=== PATIENT | male | born 1940 | race Caucasian/White ===

== ENCOUNTER 2017-07-14 20:30 | Outpatient (CLI) | payer MEDICARE, OTHER ==
--- OUTSIDE RECORDS SUMMARY | 2017-07-15 08:58 | XMS | Clinical Summary ---
:1940 Author Organization [facility] Address [address] [place] [address] Phone Care Team Providers Name Role Phone , Primary Care Provider Unavailable Allergies Not on File Current Medications Not on file Active Problems Not on file Social History Tobacco Use Types Packs/Day Years Used Date Never Assessed Sex Assigned at Date Recorded Not on file Last Filed Vital Signs Not on file Plan of Treatment Not on file Results Not on filefrom Last 3 Months
--- OUTSIDE RECORDS SUMMARY | 2017-07-15 08:58 | XMS | Clinical Summary ---
:1940 Author Organization [facility] Address [address] [place] [address] Phone Care Team Providers Name Role Phone , Primary Care Provider Unavailable Allergies No Known Allergies Current Medications Prescription Sig. Disp. Refills Start Date End Date Status multivitamin per Take 1 tablet by mouth Active tabletIndications:Vit daily. snider Deficiency omega-3 fatty Take 2 g by mouth Active acids-fish oil daily. 340-1,000 mg Cap per capsule omeprazole (PRILOSEC) Take 40 mg by mouth Active 40 MG daily. capsuleIndications:ga stroesophageal reflux disease escitalopram Take 10 mg by mouth Active (LEXAPRO) 10 MG daily. tabletIndications:Gen eralized Anxiety Disorder levothyroxine Take 50 mcg by mouth Active (SYNTHROID, daily. LEVOTHROID) 50 MCG tabletIndications:hyp othyroidism testosterone Inject intramuscularly Active enanthate every 30 (thirty) days. (DELATESTRYL) 200 mg/mL injectionIndications: Androgen Deficiency naproxen Take 220 mg by mouth Active (ALEVE,ANAPROX,MIDOL) daily. 220 MG tabletIndications:Viviane n Active Problems Not on file Family History Medical History Relation Name Comments Unremarkable Father Unremarkable Mother Relation Name Status Comments Father Mother Social History Tobacco Use Types Packs/Day Years Used Date Former Smoker Quit: 1968 Alcohol Use Drinks/Week oz/Week Comments Yes 1 Glasses of wine 1.2 OCC 1 Cans of beer Sex Assigned at Date Recorded Not on file Last Filed Vital Signs Vital Sign Reading Time Taken Blood Pressure 136/81 09/29/2014 2:40 PM PERFORMANCE IMPROVEMENT ANALYST Pulse 64 09/29/2014 2:40 PM PERFORMANCE IMPROVEMENT ANALYST Temperature 36.6 C (97.9 F) 09/29/2014 2:40 PM PERFORMANCE IMPROVEMENT ANALYST Respiratory Rate 16 09/29/2014 2:40 PM PERFORMANCE IMPROVEMENT ANALYST Oxygen Saturation 97% 09/29/2014 2:40 PM PERFORMANCE IMPROVEMENT ANALYST Inhaled Oxygen Concentration - - Weight 105.9 kg (233 lb 7.5 oz) 09/29/2014 11:22 AM PERFORMANCE IMPROVEMENT ANALYST Height 188 cm (6' 2") 09/29/2014 11:22 AM PERFORMANCE IMPROVEMENT ANALYST Body Mass Index 29.98 09/29/2014 11:22 AM PERFORMANCE IMPROVEMENT ANALYST Plan of Treatment Not on file Results Not on filefrom Last 3 Months Advance Directives Patient has advance directives. For more information, please contact:[address] [phone]
== END 2017-07-14 20:31 | disposition home or self-care (01) ==
LOC: SLEEPLAB 20:30
PROVIDERS: ATTEND Internal Medicine
DX: G47.33 Obstructive sleep apnea (adult) (pediatric) (principal); R06.83 Snoring; G47.10 Hypersomnia, unspecified; E66.9 Obesity, unspecified
CPT/HCPCS: 95811

== ENCOUNTER 2017-10-13 09:38 | Emergency (ER) | payer MEDICARE, OTHER ==
[2017-10-13 10:55] LABS: Bilirubin Negative (Negative); Blood, Urine Large (Negative); Glucose, Urine (Dipstick) Negative (Negative); Ketone, Urine Trace mg/dL (Negative); Nitrite Positive (Negative); Protein, Urine (Dipstick) 300 mg/dL (Neg-Trace)
[2017-10-13 10:58] LABS: Bacteria/HPF None Seen HPF (None Seen); Hyaline Casts/LPF 7-10 HYALINE CAST LPF (0-3 Hyaline); RBC/HPF GREATER THAN 50-TNTC HPF (0-3); Squamous Epithelial 0-3 HPF (0-3)
[2017-10-13 12:20] LABS: #Basophils 0.1 thou/uL (0.0-0.2); #Eosinphils 0.2 thou/uL (0.0-0.7); #Lymphocytes 1.6 thou/uL (1.20-3.40); #Monocytes 0.8 thou/uL (0.11-0.59); #Neutrophils 8.4 thou/uL (1.40-6.50); %Basophils 0.5 % (0.0-1.0); %Eosinophils 1.6 % (0.0-10.0); %Lymphocytes 14.5 % (21.0-51.0); Hematocrit 50.9 % (42.0-52.0); Red Blood Cell (RBC) Count 5.16 mill/uL (4.70-6.10); White Blood Cell (WBC) Count 10.9 thou/uL (4.8-10.8)
[2017-10-13] MEDS ORDERED: cefTRIAXone\\ROCEPHIN 2 GM in Sodium Chloride 0.9% 100 ML IVPB SCH (12:45)
[2017-10-13 12:50] LABS: ALT (SGPT) 18 U/L (8-55); AST (SGOT) 17 U/L (5-34); Alkaline Phosphatase 68 U/L (40-150); Anion Gap 12 mmol/L (10-20); BUN (Urea Nitrogen) 14 mg/dL (8.4-25.7); Bilirubin, Total 0.6 mg/dL (0.2-1.2); Calc. Creatinine Clearance 0 mL/min (70-130); Calcium 10.5 mg/dL (7.8-10.44); Carbon Dioxide 29 mmol/L (23-31); Chloride 103 mmol/L (98-107); Estimated GFR-MDRD 68; Globulin 2.1 g/dL (2.4-3.5); Protein, Total 6.4 g/dL (5.8-8.1)
--- NOTE | 2017-10-13 13:11 | CON ---
DATE OF CONSULTATION: 10/13/2017 REASON FOR CONSULT: ER consult for hematuria. HISTORY OF PRESENT ILLNESS: Mr. Tran is a 77-year-old male followed by Dr. Adam Jeffers for symptoms of BPH, overactive bladder. The patient currently undergoing workup for transurethral resection of prostate due to urgency, irritative/obstructive voiding symptoms, BPH. He recently underwent urodynamics demonstrating obstructive pattern with mild incomplete void. The patient unable to tolerate BPH medication as well as overactive bladder medication due to side effect profile. Unfortunately, as the patient is dealing with Alzheimer's, early memory loss, he is unable to tell me details of his reaction to urologic medications. Nevertheless , his Alfuzosin and Trospium have been discontinued. He has previously been on Myrbetriq with no significant improvement of frequency, nocturia. He is scheduled for elective cystoscopy in the next few weeks. He called the service due to gross hematuria. The contacted the service regarding passage of small clots and frequency, urgency. He did present for emergency room assessment, labs obtained demonstrating regino urine. He denies history of fever, abdominal discomfort. He has history of chronic constipation, had small bowel movement today. PAST MEDICAL HISTORY: Type 2 diabetes, Alzheimer's. PAST SURGICAL HISTORY: Include recent urodynamics, bilateral inguinal hernia repair, stomach repair 10/2012, hernia repair in 1998. PSYCHIATRIC: None. SOCIAL HISTORY: Social drinker, previous tobacco abuse. Lives with his who is present. PHYSICAL EXAMINATION: VITAL SIGNS: Blood pressure 139/78, 83 19, 99.5. GENERAL: The patient is an alert, cooperative to physical exam. at bedside. HEENT: Unremarkable. HEART: Regular rate. LUNGS: Clear. ABDOMEN: Soft, protuberant, obese. No rigidity, no rebound, and no suprapubic tenderness. GENITOURINARY: Circumcised phallus. Meatus is unremarkable. Testes descended with no evidence of intratesticular mass. RECTAL: Digital rectal exam with prostate approximately 40 grams with no discrete nodularity or induration or fluctuance appreciated., Moderate amount of hard stool in the rectal vault. EXTREMITIES: No cyanosis, clubbing or edema. BEDSIDE PROCEDURE: The patient's genital area was formally prepped, a 16 Slovak catheter was able to be passed without difficulty with no significant postvoid residual concern, approximately 80 mL. Concentrated yellow urine with some sedimentous debris. I flushed the catheter gently with no subsequent clots. Of note, relates a pea-sized clot passage this morning. PERTINENT LABS: Urinalysis; regino, large leukocytes, positive nitrites, 300 protein, greater than 50 WBCs, no bacteria. IMPRESSION/PLAN: Mr. 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 Urinalysis reviewed. I cannot rule out a urinary tract infection component. Empiric ciprofloxacin 500 mg one p.o. b.i.d. for 5-7 days advised. He is advised to call our office to follow up regarding urine culture results as he is scheduled for elective cystoscopy with Dr. Jeffers. I do not appreciate any significant hematuria of concern on today's exam, moreover catheter passed without difficulty. Patient proceed with cystoscopy as planned , upper tract imaging elective would be prudent. As he is not in retention, I will not provide further BPH meds as he has had some side effects which is unclear to me. HAZEL
== END 2017-10-13 13:33 | disposition home or self-care (01) ==
LOC: ERS 09:38
DX: N39.0 Urinary tract infection, site not specified (principal); E11.9 Type 2 diabetes mellitus without complications; E03.9 Hypothyroidism, unspecified; K21.9 Gastro-esophageal reflux disease without esophagitis; Z87.891 Personal history of nicotine dependence
CPT/HCPCS: 80053; 81003; 81015; 85025; 87086; 99283; J0696; J7050

== ENCOUNTER 2017-10-30 12:54 | Outpatient (CLI) | payer MEDICARE, OTHER ==
[2017-10-30 13:25] LABS: Hemoglobin 14.7 g/dL (14.0-18.0); Mean Corpuscular HGB CONC 32.9 g/dL (32.0-36.0); Mean Corpuscular Hemoglobin 32.5 pg (27.0-31.0); Mean Corpuscular Volume 98.8 fl (80.0-94.0); Mean Platelet Volume 6.4 fL (7.4-10.4); Platelet Count 348 thou/uL (130-400); RBC Distribution Width 11.4 % (11.5-14.5); Red Blood Cell (RBC) Count 4.52 mill/uL (4.70-6.10)
[2017-10-30 13:26] LABS: Bilirubin Negative (Negative); Blood, Urine Negative (Negative); Clarity CLEAR (Clear); Glucose, Urine (Dipstick) Negative (Negative); Leukocyte Negative (Negative); Nitrite Negative (Negative); Protein, Urine (Dipstick) Negative (Neg-Trace); Specific Gravity, Urine 1.018 (1.002-1.036); Urobilinogen 0.2 mg/dL (0.2-1.0)
[2017-10-30 13:30] LABS: Bacteria/HPF None Seen HPF (None Seen); Hyaline Casts/LPF 0-3 HYALINE CAST LPF (0-3 Hyaline); RBC/HPF 0-3 HPF (0-3); Squamous Epithelial None Seen HPF (0-3); WBC/HPF 0-3 HPF (0-3)
[2017-10-30 13:33] LABS: INR-International Normal Ratio 0.9; Prothrombin Time 12.6 SEC (12.0-14.7)
[2017-10-30 13:50] LABS: Anion Gap 11 mmol/L (10-20); BUN (Urea Nitrogen) 13 mg/dL (8.4-25.7); Calc. Creatinine Clearance 0 mL/min (70-130); Calcium 10.6 mg/dL (7.8-10.44); Carbon Dioxide 29 mmol/L (23-31); Chloride 100 mmol/L (98-107); Estimated GFR-MDRD 63; Glucose 136 mg/dL (83-110); Potassium 5.2 mmol/L (3.5-5.1); Sodium 135 mmol/L (136-145)
== END 2017-10-30 12:55 | disposition home or self-care (01) ==
LOC: LABBT 12:54
PROVIDERS: ATTEND Urology
DX: Z01.818 Encounter for other preprocedural examination (principal); N40.1 Benign prostatic hyperplasia with lower urinary tract symptoms
CPT/HCPCS: 80048; 81001; 85027; 85610; 85730; 87086; 93005; 93010

== ENCOUNTER 2017-11-09 12:40 | Outpatient (CLI) | payer MEDICARE, OTHER | END 2017-11-09 12:41 | disposition home or self-care (01) | LOC: LABBT 12:40 | PROVIDERS: ATTEND Urology | DX: Z01.812 Encounter for preprocedural laboratory examination (principal); N40.1 Benign prostatic hyperplasia with lower urinary tract symptoms | CPT/HCPCS: 86850; 86900; 86901 ==

== ENCOUNTER 2017-11-12 05:52 | Observation (INO) | payer MEDICARE, OTHER ==
[2017-10-30 13:16] VITALS: BMI 26.3
[2017-11-12] MEDS ORDERED: Fentanyl 100 MCG/2 ML VIAL ONE (06:12)
[2017-11-12] MEDS ORDERED: HYDROmorphone 0.5 MG/0.5 ML SYRINGE ONE (06:12)
[2017-11-12] MEDS ORDERED: cefTRIAXone\\ROCEPHIN 1 GM, Syringe 0.4 ML in Sterile Water 9.6 ML SLOW IVP SCH (06:45)
[2017-11-12] MEDS ORDERED: Mag-Al 1200 mg/1200 mg/30 ML UDCUP PO PRN (09:01)
[2017-11-12] MEDS ORDERED: diphenhydrAMINE 25 MG CAP PO PRN (09:01)
[2017-11-12] MEDS ORDERED: Dextrose 50% Abboject 50 ML SYRINGE SLOW IVP PRN ×2 (09:01→09:03)
[2017-11-12] MEDS ORDERED: Ondansetron HCl/PF 4 MG/2 ML Vial IVP PRN (09:01)
[2017-11-12] MEDS ORDERED: Oxybutynin 5 MG TAB PO PRN (09:01)
[2017-11-12] MEDS ORDERED: Dextrose 5% in Water 1,000 ML IV PRN ×2 (09:01→09:03)
[2017-11-12] MEDS ORDERED: hydrALAZINE 20 MG/ML VIAL SLOW IVP PRN (09:01)
[2017-11-12] MEDS ORDERED: Hyoscyamine Sulfate SL 0.125 mg Tablet SL PRN (09:01)
[2017-11-12] MEDS ORDERED: Insulin Regular 300 UNITS/3 ML VIAL SC PRN (09:03)
[2017-11-12] MEDS ORDERED: Morphine 2 MG/ML SYRINGE SLOW IVP PRN ×3 (09:55→10:00)
[2017-11-12 10:50] LABS: #Basophils 0.1 thou/uL (0.0-0.2); #Eosinphils 0.1 thou/uL (0.0-0.7); #Lymphocytes 1.2 thou/uL (1.20-3.40); #Monocytes 0.2 thou/uL (0.11-0.59); #Neutrophils 5.3 thou/uL (1.40-6.50); %Eosinophils 1.1 % (0.0-10.0); %Monocytes 3.1 % (0.0-10.0); %Neutrophils 76.9 % (42.0-75.0); Hemoglobin 14.4 g/dL (14.0-18.0); Mean Corpuscular HGB CONC 33.2 g/dL (32.0-36.0); Mean Corpuscular Hemoglobin 32.4 pg (27.0-31.0); Mean Corpuscular Volume 97.6 fl (80.0-94.0); Mean Platelet Volume 6.8 fL (7.4-10.4); Platelet Count 219 thou/uL (130-400); RBC Distribution Width 11.9 % (11.5-14.5); Red Blood Cell (RBC) Count 4.43 mill/uL (4.70-6.10); White Blood Cell (WBC) Count 6.8 thou/uL (4.8-10.8)
[2017-11-12 11:09] LABS: Anion Gap 13 mmol/L (10-20); BUN (Urea Nitrogen) 13 mg/dL (8.4-25.7); Calc. Creatinine Clearance 93 mL/min (70-130); Calcium 9.8 mg/dL (7.8-10.44); Carbon Dioxide 24 mmol/L (23-31); Chloride 104 mmol/L (98-107); Estimated GFR-MDRD 86; Glucose 166 mg/dL (83-110); Potassium 4.8 mmol/L (3.5-5.1); Sodium 136 mmol/L (136-145)
--- NOTE | 2017-11-12 12:21 | OP ---
DATE OF PROCEDURE: 11/12/2017 SERVICE: Urology. SURGEON: Adam Jeffers M.D. PREOPERATIVE DIAGNOSIS: Benign prostatic hypertrophy. POSTOPERATIVE DIAGNOSIS: Benign prostatic hypertrophy. PROCEDURE PERFORMED: Transurethral resection of the prostate. INDICATIONS FOR PROCEDURE: Mr. Tran is a 77-year-old white male who presented to me for significa nt lower urinary tract symptoms of BPH, urodynamics that demonstrated obstruction and he did have obs tructive lobes on cystoscopy, he has significant overactive bladder with incomplete emptying. I disc ussed TURP with him and he wished to proceed forward. DESCRIPTION OF PROCEDURE: After identification of arm band and verification of consent, the patient was brought back to the operating room where he underwent general anesthesia with an LMA. He was the n placed in dorsal lithotomy position, prepped and draped in a usual sterile fashion. After appropri ate timeout, a 26 Fijian visual obturator resectoscope sheath was placed through the urethra without difficulty into the bladder neck, there was a mild bulbar urethral stricture which was easily dilated and navigated past with the resectoscope. Both ureters were identified in orthotopic location. The visual obturator was then switched out for the prostate, bipolar resectoscope loop, resection was st arted at the bladder neck and carried back to the verumontanum circumferentially to resect the vast m ajority of the prostate adenoma. Relaxing incisions were done at 5 and 7 o'clock, taking care not to undermine the bladder or injure the ureteral orifices. The intervening tissue was resected down. M eticulous hemostasis was performed with the coag function on the gyrus. The DanaeSputnikBot evacuator was then used to evacuate the prostate chips for pathologic evaluation. Upon final inspection, there were no prostate chips within the bladder. The prostate bed was completely clear. There was no bleeding. Further cauterization was performed to ensure that there was no bleeding and then the resectoscope wa s removed. A 22-Fijian three-way Duncan catheter was then placed without difficulty into the patient' s bladder. A 30 mL of sterile water placed in the balloon and CBI initiated. The patient was then a wakened and taken to PACU for recovery in stable condition. COMPLICATIONS: None. ESTIMATED BLOOD LOSS: Minimal. RETAINED TUBES AND DRAINS: A 22-Fijian 3-way Duncan catheter on CBI. SPECIMENS: Prostate chips. DISPOSITION: The patient will be kept in the hospital overnight and be discharged home tomorrow pend ing a voiding trial.
[2017-11-12] MEDS ORDERED: traMADol HCl 50 MG TAB PO PRN (15:20)
[2017-11-12] MEDS ORDERED: Ondansetron HCl/PF 4 MG/2 ML Vial ONE (16:14)
[2017-11-12] MEDS ORDERED: Dexamethasone 20 MG/5 ML VIAL ONE (16:14)
[2017-11-12] MEDS ORDERED: diphenhydrAMINE 50 MG/ML VIAL ONE (16:14)
[2017-11-12] MEDS ORDERED: Lidocaine 1% PF 5 ML VIAL ONE (16:14)
[2017-11-12] MEDS ORDERED: Propofol 200 MG/20 ML VIAL ONE (16:14)
[2017-11-12] MEDS: metFORMIN 500 MG TAB PO SCH (16:41)
[2017-11-12] MEDS: Docusate 100 MG CAP PO SCH (19:57)
[2017-11-13 04:11] LABS: #Basophils 0.1 thou/uL (0.0-0.2); #Eosinphils 0.2 thou/uL (0.0-0.7); #Lymphocytes 2.3 thou/uL (1.20-3.40); #Monocytes 0.9 thou/uL (0.11-0.59); #Neutrophils 6.2 thou/uL (1.40-6.50); %Basophils 0.7 % (0.0-1.0); %Eosinophils 1.6 % (0.0-10.0); %Lymphocytes 23.8 % (21.0-51.0); %Monocytes 9.6 % (0.0-10.0); %Neutrophils 64.4 % (42.0-75.0); Hemoglobin 13.8 g/dL (14.0-18.0); Mean Corpuscular HGB CONC 31.7 g/dL (32.0-36.0); Mean Corpuscular Hemoglobin 31.2 pg (27.0-31.0); Mean Corpuscular Volume 98.7 fl (80.0-94.0); Platelet Count 233 thou/uL (130-400); Red Blood Cell (RBC) Count 4.42 mill/uL (4.70-6.10); White Blood Cell (WBC) Count 9.6 thou/uL (4.8-10.8)
[2017-11-13 04:35] LABS: Anion Gap 12 mmol/L (10-20); BUN (Urea Nitrogen) 10 mg/dL (8.4-25.7); Calc. Creatinine Clearance 87 mL/min (70-130); Calcium 9.8 mg/dL (7.8-10.44); Carbon Dioxide 28 mmol/L (23-31); Chloride 104 mmol/L (98-107); Estimated GFR-MDRD 80; Glucose 105 mg/dL (83-110); Potassium 4.1 mmol/L (3.5-5.1); Sodium 140 mmol/L (136-145)
[2017-11-13] MEDS ORDERED: Levothyroxine Sodium 50 MCG TAB PO SCH (06:00)
[2017-11-13] MEDS ORDERED: Cyanocobalamin (Vitamin B-12) 1,000 MCG TAB PO SCH (09:00)
[2017-11-13] MEDS ORDERED: CURAMED PO SCH (09:00)
[2017-11-13] MEDS ORDERED: Bupropion 150 MG SR TAB PO SCH (09:00)
[2017-11-13] MEDS ORDERED: [UNRECOGNIZED DRUG - OTHER] PO SCH (09:00)
[2017-11-13] MEDS: Docusate 100 MG CAP PO SCH (09:23)
[2017-11-13] MEDS: metFORMIN 500 MG TAB PO SCH (09:23)
[2017-11-13 11:56] VITALS: BP 149/80; TEMP 98
--- NOTE | 2017-11-13 15:33 | PRG ---
DATE OF SERVICE: 11/13/2017 SUBJECTIVE: The patient states he is doing very well, has no complaints, has no bladder spasms. He has been getting up, eating well, walking around and has no other complaints. OBJECTIVE: VITAL SIGNS: Temperature 98, pulse 66, respirations 16, blood pressure 124/69, saturation 94% on maya m air. GENERAL: No apparent distress, communicative and alert. CARDIOVASCULAR: Regular rate and rhythm. CHEST: No increased work of breathing. ABDOMEN: Soft, nontender, nondistended, positive bowel sounds. GENITOURINARY: Duncan catheter in place with CBI off with nearly completely clear urine. EXTREMITIES: No clubbing, cyanosis or edema. LABORATORY DATA: The full set of labs in the [facility] system, which I have reviewed. Of note, the p atient's hemoglobin is 13.8 with a white count 9.6, creatinine is 0.92. ASSESSMENT AND PLAN: A 77-year-old white male with benign prostatic hypertrophy and lower urinary tr act symptoms status post transurethral resection of the prostate, postop day #1. He is doing very we ll and his urine looks excellent. We will take out his catheter and then perform serial urine collec tions with voiding trial. As long as his urine looks good, he can be discharged home with follow up with me in approximately 2 weeks. He no longer needs to take his benign prostatic hypertrophy medica tions and I have gone over all of his postoperative discharge instructions with him.
--- NOTE | 2017-11-18 11:05 | DIS ---
DATE OF ADMISSION: 11/12/2017 DATE OF DISCHARGE: 11/13/2017 ADMITTING DIAGNOSIS: Adam Jeffers M.D. DISCHARGING ATTENDING: Adam Jeffers M.D. ADMITTING DIAGNOSIS: Benign prostatic hypertrophy. DISCHARGE DIAGNOSIS: Benign prostatic hypertrophy. PROCEDURES PERFORMED WHILE INPATIENT: Transurethral resection of the prostate. BRIEF HISTORY: Mr. Tran is a 77-year-old white male with BPH and lower urinary tract symptoms, he had elected to pursue TURP instead of taking medical therapy. He is coming in for the surgery. HOSPITAL COURSE: After surgery (please see operative note for details) [facility]. His CBI remained completely clear overnight and was stopped in the morning. He pas sed a voiding trial successfully with minimal blood. He was then discharged home. DISPOSITION: Discharge to home. DISCHARGE CONDITION: Good. DISCHARGE MEDICATIONS: Please see med rec. DISCHARGE INSTRUCTIONS: Included in the discharge portion of the [facility] system. Follow up will be in approximately 2 weeks for postop check.
== END 2017-11-13 15:00 | disposition home or self-care (01) ==
LOC: SDC 05:52 → SURG A 09:01
PROVIDERS: ADMIT Urology; ATTEND Urology
PROC: 0VT08ZZ Resection of Prostate, Via Natural or Artificial Opening Endoscopic (ICD-10-PCS; principal; 2017-11-12)
DX: N40.1 Benign prostatic hyperplasia with lower urinary tract symptoms (principal); R35.1 Nocturia; E11.9 Type 2 diabetes mellitus without complications; G30.9 Alzheimer's disease, unspecified; Z88.8 Allergy status to other drugs, medicaments and biological substances; Z79.899 Other long term (current) drug therapy; Z98.890 Other specified postprocedural states; Z87.891 Personal history of nicotine dependence
CPT/HCPCS: 52601; 80048 ×2; 82962; 85025 ×2; 88305; 96365; G0378; 36415; 36416; A4216; J0131; J0696; J1100; J1170; J1200; J1956; J2001; J2405; J2704; J3010

== ENCOUNTER 2018-02-24 13:20 | Outpatient (CLI) | payer MEDICARE, OTHER | END 2018-02-24 13:21 | disposition home or self-care (01) | LOC: BICRAD 13:20 | PROVIDERS: ATTEND Internal Medicine Gastroenterology | DX: K59.00 Constipation, unspecified (principal); K31.84 Gastroparesis; R14.0 Abdominal distension (gaseous) | CPT/HCPCS: 74018 ==

== ENCOUNTER 2018-02-25 12:36 | Outpatient (CLI) | payer MEDICARE, OTHER | END 2018-02-25 12:37 | disposition home or self-care (01) | LOC: BICRAD 12:36 | PROVIDERS: ATTEND Internal Medicine Gastroenterology | DX: K59.00 Constipation, unspecified (principal) | CPT/HCPCS: 74022 ==

== ENCOUNTER 2019-09-02 07:56 | Outpatient (CLI) | payer MEDICARE, OTHER ==
--- NOTE | 2019-09-02 09:02 | MRI ---
MRI CERVICAL SPINE WITHOUT CONTRAST: HISTORY: Neck Pain. COMPARISON: Cervical stenosis. FINDINGS: There is motion artifact throughout the exam which limits assessment. The craniocervical junction is unremarkable. No significant cord signal abnormality. Degenerative hypertrophy of the craniocervical junction. C1-2:No significant stenosis. C2-3:Left paracentral, moderate-sized disc protrusion does efface the ventral cervical spinal cord. N o significant foraminal stenosis. C3-4:Right asymmetric broad-based disc osteophyte with superimposed left paracentral disc protrusion. There is left ventral hemicord flattening. Moderate right and mild left neural foraminal stenosis. C4-5:Disc osteophyte formation with mild central canal stenosis, and mild right foraminal stenosis. N o significant left foraminal stenosis. C5-6:Moderate central canal stenosis due to broad-based disc osteophyte with associated cord flatteni ng. There is moderate to severe right and moderate left neural foraminal stenosis. C6-7: Left paracentral disc protrusion effaces the ventral aspect of the cervical spinal cord. There is mild central canal stenosis. Moderate bilateral neural foraminal stenosis. C7-T1:Mild effacement of ventral thecal sac due to disc osteophyte. Mild bilateral neural foraminal s tenosis. IMPRESSION: Moderate multilevel degenerative change, throughout the cervical spine, as outlined above. This resul ts in multilevel cord effacement, and neural foraminal stenosis. Transcribed Date/Time: 09/02/2019 9:06 AM
--- NOTE | 2019-09-02 09:37 | MRI ---
MRI LUMBAR SPINE NONCONTRAST: HISTORY: Lumbar foraminal stenosis. Low back pain with leg weakness, x6 months. COMPARISON: None. FINDINGS: Appropriate T1 marrow signal intensity of the lumbar vertebrae. Lumbar spine vertebral body height is maintained. No fracture. Endplate changes due to Schmorl's nodes are noted at L3-L4 and L4-L5. No significant STIR hyperintensity to suggest vertebral body edema or ligamentous injury. Appropriate signal intensity of the visualized solid organs. Appropriate signal intensity of the visu alized paraspinal muscles. Conus medullaris terminates at the mid T12 level. T12-L1:Adequate disc hydration. No significant canal stenosis or significant neural foraminal narrowi ng. L1-L2:Disc desiccation without significant loss of disc space height. Minimal central disc protrusion and ligamentum flavum thickening/facet hypertrophy are noted. No significant central canal stenosis or significant neural foraminal narrowing. L2-L3:Disc desiccation with mild loss of disc space height. Small left and right paracentral disc bul ges result in minimal stenosis of the thecal sac. Mild bilateral neural foraminal narrowing. L3-L4:Desiccation with mild loss of disc space height. Broad-based disc bulge, ligament flavum thicke jose r and facet hypertrophy result in mild central canal stenosis. Narrowing of both subarticular zones, left greater than right. Mass effect and partial obscuration of bilateral traversing L4 nerve roots, left greater than right. Mild bilateral neural foraminal narrowing. L4-L5:Desiccation with minimal loss of disc space height. Broad-based disc bulge, ligament flavum thi ckening and facet hypertrophy result in moderate central canal stenosis. There is mass effect and partial obscuration of bilateral traversing L5 nerve roots. Moderate bilateral neural foraminal narro wing. L5-S1:Desiccation without significant loss of disc space height. There is a central/left subarticular disc protrusion with associated annular fissure. The annular fissure abuts the traversing left S1 nerve root. There is moderate to severe ligamentum flavum thickening and facet hypertrophy. There is fluid in both facet joints. Overall there is moderate central canal stenosis. Right neural foramen is patent. Moderate left foraminal narrowing. IMPRESSION: Multilevel degenerative changes of the lumbar spine as detailed above. Transcribed Date/Time: 09/02/2019 9:51 AM
== END 2019-09-02 07:57 | disposition home or self-care (01) ==
LOC: BICMRI 07:56
PROVIDERS: ATTEND Anesthesiology Pain Medicine
DX: M48.061 Spinal stenosis, lumbar region without neurogenic claudication (principal); M48.02 Spinal stenosis, cervical region; M47.816 Spondylosis without myelopathy or radiculopathy, lumbar region; M47.817 Spondylosis without myelopathy or radiculopathy, lumbosacral region; M47.812 Spondylosis without myelopathy or radiculopathy, cervical region
CPT/HCPCS: 72141; 72148

== ENCOUNTER 2019-12-21 07:42 | Outpatient (CLI) | payer MEDICARE, OTHER ==
--- NOTE | 2019-12-21 09:38 | MRI ---
BRAIN MRI WITHOUT CONTRAST: Date: 12/21/2019 COMPARISON: 08/08/2019. HISTORY: Headache. TECHNIQUE: Multiplanar, multisequence MR imaging of the brain is provided without contrast. FINDINGS: The axial gradient echo imaging demonstrates no evidence for intracranial hemorrhage. The diffusion weighted imaging demonstrates no evidence for acute infarction. There is mild mucosal thickening involving the maxillary sinuses, ethmoid air cells, and frontal sinu ses. There is mild diffuse cerebral volume loss. There is extensive multifocal periventricular, deep, and subcortical white matter T2 and FLAIR hyperintensity suggesting a moderate degree of small vessel dis ease. Upper cervical spine degenerative change noted. Regional bone marrow signal intensity appears grossly unremarkable. IMPRESSION: Chronic findings as described above. No evidence for intracranial hemorrhage or acute infarction. POS: [facility]
== END 2019-12-21 07:43 | disposition home or self-care (01) ==
LOC: TBSIIMAG 07:42
PROVIDERS: ATTEND Neurological Surgery
DX: R51 Headache (principal); R26.89 Other abnormalities of gait and mobility; J34.89 Other specified disorders of nose and nasal sinuses; M47.812 Spondylosis without myelopathy or radiculopathy, cervical region; G93.89 Other specified disorders of brain
CPT/HCPCS: 70551

== ENCOUNTER 2020-03-12 10:46 | Emergency (ER) | payer MEDICARE, OTHER ==
[~2020-03-12 10:46] MED LIST: Iopamidol-370 76% 500 ML 1 ML ONE
[2020-03-12] MEDS ORDERED: Morphine 4 MG/ML VIAL ONE ×2 (11:21→13:12)
[2020-03-12] MEDS ORDERED: Ondansetron PF 4 MG/2 ML Vial ONE ×2 (11:21→13:13)
[2020-03-12 12:00] LABS: #Basophils 0.1 thou/uL (0.0-0.2); #Eosinphils 0.2 thou/uL (0.0-0.7); #Lymphocytes 1.1 thou/uL (1.20-3.40); #Monocytes 0.5 thou/uL (0.11-0.59); #Neutrophils 4.7 thou/uL (1.40-6.50); %Basophils 0.8 % (0.0-1.0); %Eosinophils 3.5 % (0.0-10.0); %Monocytes 7.8 % (0.0-10.0); Hemoglobin 14.9 g/dL (14.0-18.0); Mean Corpuscular HGB CONC 31.9 g/dL (32.0-36.0); Mean Corpuscular Hemoglobin 30.7 pg (27.0-31.0); Mean Corpuscular Volume 96.4 fL (78.0-98.0); Mean Platelet Volume 7.6 fL (7.4-10.4); Platelet Count 229 thou/uL (130-400); RBC Distribution Width 12.1 % (11.5-14.5); Red Blood Cell (RBC) Count 4.84 mill/uL (4.70-6.10); White Blood Cell (WBC) Count 6.7 thou/uL (4.8-10.8)
[2020-03-12 12:16] LABS: ALT (SGPT) 23 U/L (8-55); AST (SGOT) 21 U/L (5-34); Alkaline Phosphatase 110 U/L (40-110); Anion Gap 12 mmol/L (10-20); BUN (Urea Nitrogen) 11 mg/dL (8.4-25.7); Bilirubin, Total 0.6 mg/dL (0.2-1.2); Calc. Creatinine Clearance 0 mL/min (70-130); Calcium 9.5 mg/dL (7.8-10.44); Carbon Dioxide 25 mmol/L (23-31); Chloride 106 mmol/L (98-107); Estimated GFR-MDRD 76; Globulin 2.4 g/dL (2.4-3.5); Glucose 142 mg/dL (83-110); Lipase 19 U/L (8-78); Magnesium 2.3 mg/dL (1.6-2.6); Protein, Total 6.4 g/dL (5.8-8.1); Sodium 139 mmol/L (136-145)
--- NOTE | 2020-03-12 13:16 | CT ---
ABDOMEN AND PELVIC CT SCAN: HISTORY: Nausea and vomiting. FINDINGS: A 0.3 cm diameter pleural-based nodule along the right major fissure, probably an intrapulmonary node . Very small liver and left renal cyst. Pancreas, spleen, and adrenal glands are unremarkable. No renal hydronephrosis or renal calculus. Normal-appearing appendix. Bilateral fat-containing inguina l hernias. IMPRESSION: No significant acute process in the abdomen or pelvis. Other findings as above. POS: [facility]
== END 2020-03-12 13:30 | disposition home or self-care (01) ==
LOC: ERS 10:46
DX: R11.2 Nausea with vomiting, unspecified (principal); R10.31 Right lower quadrant pain; R10.32 Left lower quadrant pain; E11.9 Type 2 diabetes mellitus without complications; E03.9 Hypothyroidism, unspecified; K21.9 Gastro-esophageal reflux disease without esophagitis; Z87.891 Personal history of nicotine dependence; Z79.899 Other long term (current) drug therapy
CPT/HCPCS: 36415; 74177; 80053; 83605; 83690; 83735; 85025; 96361; 96372; 96374; 96375; 96376; J0500; J2270; J2405; Q9967

== ENCOUNTER 2020-11-09 15:06 | Outpatient (CLI) | payer MEDICARE, OTHER ==
--- NOTE | 2020-11-09 16:50 | MRI ---
EXAM: MRI lumbar spine without contrast HISTORY: Lumbar stenosis with neurogenic claudication. Low back pain with tingling down bilateral leg s since lumbar surgery in February 2020 COMPARISON: 09/02/2019 TECHNIQUE: Multiple planar multisequence MR images were obtained of the lumbar spine without contrast . FINDINGS: The vertebral bodies and intervertebral discs demonstrate normal height and alignment without fractur e or subluxation. Endplate degenerative changes are seen throughout the lumbar spine, greatest at L2/3. The endplate degenerative changes at L2/3 are worse than on the prior examination and may be ac [place]. The prevertebral and paraspinal soft tissues are unremarkable. The conus medullaris terminates normally at T12. T12/L1: No significant posterior bulge or protrusion. No posterior facet arthrosis. No central juan l stenosis. No neural foraminal stenosis L1/2: No significant posterior bulge or protrusion. Mild bilateral posterior facet arthrosis. No ce ntral canal stenosis. No neural foraminal stenosis L2/3: There is a small disc osteophyte complex. Mild bilateral posterior facet arthrosis. No centra l canal stenosis. Mild bilateral neural foraminal stenosis L3/4: There is a small disc osteophyte complex. Moderate bilateral posterior facet arthrosis. Mild central canal stenosis. Mild bilateral neural foraminal stenosis L4/5: There is a moderate disc osteophyte complex. Moderate bilateral posterior facet arthrosis. Mo derate central canal stenosis. Mild bilateral neural foraminal stenosis L5/S1: There is a minimal generalized concentric disc bulge. Moderate bilateral posterior facet arth rosis. No central canal stenosis. No neural foraminal stenosis IMPRESSION: Stable degenerative changes of the lumbar spine as above. There are more acute endplate degenerative changes surrounding L2/3.
== END 2020-11-09 15:07 | disposition home or self-care (01) ==
LOC: BICMRI 15:06
PROVIDERS: ATTEND Anesthesiology Pain Medicine
DX: M48.062 Spinal stenosis, lumbar region with neurogenic claudication (principal); M47.816 Spondylosis without myelopathy or radiculopathy, lumbar region
CPT/HCPCS: 72148

== ENCOUNTER 2020-11-28 09:02 | Outpatient (CLI) | payer MEDICARE, OTHER ==
--- NOTE | 2020-11-28 11:28 | RAD ---
LEFT HIP 2 VIEWS: HISTORY: Hips pain and arthritis. FINDINGS: There are mild to moderate degenerative changes at the left hip. Spurring from the femoral head and acetabulum. Mild joint narrowing. No fracture or acute lesion. Femoral head contour is preserved. IMPRESSION: Moderate degenerative changes left nip. POS: OFF
--- NOTE | 2020-11-28 11:29 | RAD ---
LUMBAR SPINE 4 VIEWS: HISTORY: Lumbar arthropathy. FINDINGS: Lumbar vertebrae maintain height and alignment in the lateral view. Moderate degenerative changes ar e noted. Anterior and lateral bridging osteophytes are seen throughout the lumbar spine. Prominent facet hypertrophy in the lower lumbar spine. No evidence of spondylolisthesis. IMPRESSION: Moderate hypertrophic degenerative changes of lumbar spine. POS: OFF
== END 2020-11-28 09:03 | disposition home or self-care (01) ==
LOC: BICRAD 09:02
PROVIDERS: ATTEND Anesthesiology Pain Medicine
DX: M47.816 Spondylosis without myelopathy or radiculopathy, lumbar region (principal); M17.12 Unilateral primary osteoarthritis, left knee
CPT/HCPCS: 72110

== ENCOUNTER 2021-03-28 10:20 | Outpatient (CLI) | payer MEDICARE, OTHER | END 2021-03-28 10:21 | disposition home or self-care (01) | LOC: BICMRI 10:20 | PROVIDERS: ATTEND Psychiatry & Neurology Neurology | DX: G31.1 Senile degeneration of brain, not elsewhere classified (principal) | CPT/HCPCS: 70553; 82565 ==

== ENCOUNTER 2021-11-28 16:58 | Inpatient (IN) | payer MEDICARE, OTHER ==
[~2021-11-28 16:58] MED LIST changes: +Iopamidol 370 76% 100 ML VIAL ONE; -Iopamidol-370 76% 500 ML 1 ML ONE
[2021-11-28 17:32] LABS: #Basophils 0.1 thou/uL (0.0-0.2); #Eosinphils 0.2 thou/uL (0.0-0.7); #Lymphocytes 3.5 thou/uL (1.20-3.40); #Monocytes 0.8 thou/uL (0.11-0.59); #Neutrophils 4.9 thou/uL (1.40-6.50); %Basophils 0.8 % (0.0-1.0); %Eosinophils 2.6 % (0.0-10.0); %Monocytes 8.5 % (0.0-10.0); %Neutrophils 51.2 % (42.0-75.0); Hemoglobin 15.6 g/dL (14.0-18.0); Mean Corpuscular HGB CONC 32.5 g/dL (32.0-36.0); Mean Corpuscular Volume 98.4 fL (78.0-98.0); Mean Platelet Volume 7.2 fL (7.4-10.4); Platelet Count 223 thou/uL (130-400); RBC Distribution Width 12.3 % (11.5-14.5); Red Blood Cell (RBC) Count 4.87 mill/uL (4.70-6.10); White Blood Cell (WBC) Count 9.6 thou/uL (4.8-10.8)
[2021-11-28 18:13] LABS: ALT (SGPT) 21 U/L (8-55); AST (SGOT) 25 U/L (5-34); Albumin 4.3 g/dL (3.4-4.8); Alkaline Phosphatase 87 U/L (40-110); Anion Gap 16 mmol/L (10-20); BUN (Urea Nitrogen) 13 mg/dL (8.4-25.7); Bilirubin, Total 0.3 mg/dL (0.2-1.2); Calc. Creatinine Clearance 0 mL/min (70-130); Calcium 9.9 mg/dL (7.8-10.44); Carbon Dioxide 21 mmol/L (23-31); Chloride 102 mmol/L (98-107); Globulin 2.8 g/dL (2.4-3.5); Glucose 217 mg/dL (83-110); Potassium 5.1 mmol/L (3.5-5.1); Protein, Total 7.1 g/dL (5.8-8.1); Sodium 134 mmol/L (136-145)
[2021-11-28] MEDS ORDERED: Ondansetron PF 4 MG/2 ML Vial ONE (18:38)
[2021-11-28] MEDS ORDERED: Ketorolac Tromethamine 30 MG/ML VIAL ONE (21:12)
[2021-11-28] MEDS ORDERED: Insulin Regular 300 UNITS/3 ML VIAL SC PRN ×2 (22:25)
[2021-11-28] MEDS ORDERED: Dextrose 50% Abboject 50 ML SYRINGE SLOW IVP PRN (22:25)
[2021-11-28] MEDS ORDERED: Dextrose 5% in Water 1,000 ML IV PRN (22:25)
[2021-11-28] MEDS ORDERED: hydrALAZINE 20 MG/ML VIAL SLOW IVP PRN (22:25)
[2021-11-28] MEDS ORDERED: Rib Fracture Protocol PO SCH (22:30)
[2021-11-28] MEDS ORDERED: Sodium Chloride 0.9% 1,000 ML IV SCH (22:45)
[2021-11-29] MEDS ORDERED: Ondansetron PF 4 MG/2 ML Vial IVP PRN ×2 (00:21→00:22)
[2021-11-29] MEDS ORDERED: Promethazine HCl 25 MG/ML VIAL IM PRN (00:23)
[2021-11-29] MEDS ORDERED: Cyclobenzaprine 10 MG TAB PO PRN (00:30)
[2021-11-29 01:15] VITALS: BMI 28.2
[2021-11-29 05:10] LABS: Anion Gap 14 mmol/L (10-20); BUN (Urea Nitrogen) 15 mg/dL (8.4-25.7); Calc. Creatinine Clearance 75 mL/min (70-130); Calcium 9.4 mg/dL (7.8-10.44); Carbon Dioxide 24 mmol/L (23-31); Chloride 101 mmol/L (98-107); Glucose 163 mg/dL (83-110); Phosphorus 2.6 mg/dL (2.3-4.7); Potassium 4.7 mmol/L (3.5-5.1); Sodium 134 mmol/L (136-145)
[2021-11-29 05:20] LABS: #Lymphocytes 1.7 thou/uL (1.20-3.40); #Monocytes 0.6 thou/uL (0.11-0.59); #Neutrophils 8.4 thou/uL (1.40-6.50); %Basophils 0.4 % (0.0-1.0); %Eosinophils 0.4 % (0.0-10.0); %Lymphocytes 15.6 % (21.0-51.0); %Monocytes 5.7 % (0.0-10.0); %Neutrophils 77.8 % (42.0-75.0); Hemoglobin 14.8 g/dL (14.0-18.0); Mean Corpuscular HGB CONC 31.8 g/dL (32.0-36.0); Mean Corpuscular Hemoglobin 31.5 pg (27.0-31.0); Mean Platelet Volume 7.6 fL (7.4-10.4); Platelet Count 191 thou/uL (130-400); RBC Distribution Width 12.1 % (11.5-14.5); Red Blood Cell (RBC) Count 4.69 mill/uL (4.70-6.10); White Blood Cell (WBC) Count 10.8 thou/uL (4.8-10.8)
[2021-11-29] MEDS: traMADol HCl 50 MG TAB PO SCH ×3 (05:27→17:10)
[2021-11-29] MEDS: Acetaminophen 500 MG TAB PO SCH ×3 (05:27→17:09)
[2021-11-29] MEDS: Ibuprofen 200 MG TAB PO SCH ×3 (05:27→21:01)
[2021-11-29] MEDS ORDERED: traMADol HCl 50 MG TAB PO PRN (07:38)
[2021-11-29] MEDS ORDERED: PHOS-NAK 1 PKT PACK PO SCH (07:45)
[2021-11-29] MEDS ORDERED: Levothyroxine Sodium 50 MCG TAB PO SCH (08:00)
[2021-11-29] MEDS ORDERED: Gabapentin 100 MG CAP PO SCH (09:00)
[2021-11-29] MEDS ORDERED: Famotidine 20 MG TAB PO SCH ×2 (09:00)
[2021-11-29] MEDS: Bupropion 100 MG SR TAB PO SCH (09:24)
[2021-11-29] MEDS: Escitalopram Oxalate 10 mg Tablet PO SCH (09:24)
[2021-11-29] MEDS: Senokot S 8.6-50 MG TAB PO SCH ×2 (09:31→21:00)
[2021-11-29] MEDS: Polyethylene Glycol 3350 17 GM Packet PO SCH (09:36)
[2021-11-29 12:12] LABS: SARS-CoV-2 PCR by NAA Not Detected (NotDetected)
[2021-11-29] MEDS ORDERED: traMADol HCl 50 MG TAB PO SCH (13:00)
[2021-11-29] MEDS: Gabapentin 100 MG CAP PO SCH ×2 (14:00→21:00)
[2021-11-30] MEDS: Acetaminophen 500 MG TAB PO SCH ×3 (00:17→12:18)
[2021-11-30] MEDS: traMADol HCl 50 MG TAB PO SCH ×3 (00:18→12:16)
[2021-11-30] MEDS ORDERED: Levothyroxine Sodium 50 MCG TAB PO SCH (06:00)
[2021-11-30] MEDS: Ibuprofen 200 MG TAB PO SCH (06:08)
[2021-11-30] MEDS ORDERED: Non-Formulary Item 1 EACH (Alprazolam [Xanax Xr] 0.5 MG Tab.Er.24h) PO PRN (08:08)
[2021-11-30] MEDS ORDERED: ALPRAZOLAM 0.5 MG PO PRN (08:22)
[2021-11-30] MEDS: Escitalopram Oxalate 10 mg Tablet PO SCH (08:34)
[2021-11-30] MEDS: Bupropion 100 MG SR TAB PO SCH (08:34)
[2021-11-30] MEDS: Gabapentin 100 MG CAP PO SCH (08:35)
[2021-11-30] MEDS: Senokot S 8.6-50 MG TAB PO SCH (08:37)
[2021-11-30] MEDS: Polyethylene Glycol 3350 17 GM Packet PO SCH (08:37)
[2021-11-30 11:47] VITALS: TEMP 97.5
[2021-11-30 11:48] VITALS: BP 130/76
[2021-11-30] MEDS ORDERED: metFORMIN 500 MG TAB PO SCH (17:00)
== END 2021-11-30 13:01 | disposition home or self-care (01) | DRG 184 ==
LOC: ERS 16:58 → SURG B 22:30
PROVIDERS: ADMIT Specialist; ATTEND Surgery
DX: S22.41XA Multiple fractures of ribs, right side, initial encounter for closed fracture (principal); S32.019A Unspecified fracture of first lumbar vertebra, initial encounter for closed fracture; S32.029A Unspecified fracture of second lumbar vertebra, initial encounter for closed fracture; S32.039A Unspecified fracture of third lumbar vertebra, initial encounter for closed fracture; E22.2 Syndrome of inappropriate secretion of antidiuretic hormone; Z20.822 Contact with and (suspected) exposure to COVID-19; W18.30XA Fall on same level, unspecified, initial encounter; K21.9 Gastro-esophageal reflux disease without esophagitis; E03.9 Hypothyroidism, unspecified; E11.43 Type 2 diabetes mellitus with diabetic autonomic (poly)neuropathy; K31.84 Gastroparesis; G89.29 Other chronic pain; M54.9 Dorsalgia, unspecified; Z87.891 Personal history of nicotine dependence; Z96.82 Presence of neurostimulator; Z88.1 Allergy status to other antibiotic agents; Z88.8 Allergy status to other drugs, medicaments and biological substances; Z79.899 Other long term (current) drug therapy; Z79.890 Hormone replacement therapy; Z79.84 Long term (current) use of oral hypoglycemic drugs
CPT/HCPCS: 36415; 36416; 70450; 71045; 71260; 72125; 74177; 80048; 80053; 83735; 84100; 84484; 85025; 93005; 96374; 96375; G0390; J1815; J1885; J2405; J7050; Q9967; U0003; U0005